=== PATIENT | male | born 1990 | race Caucasian/White ===

== ENCOUNTER 2016-07-23 15:52 | Emergency (ER) | payer MEDICAID ==
--- NOTE | 2016-07-23 16:14 | EDPHY ---
H & P Stated Complaint: Pain L ant lower rib area~several wks;saw PCP dx'd ? spleen enlargement HPI/ROS: HPI CHIEF COMPLAINT: Left-sided lower chest pain HISTORY OF PRESENT ILLNESS: This patient very pleasant 26-year-old male significant past medical history of PTSD, history of tobacco use, presents to the emergency room with left-sided pleuritic chest pain. Pain is sharp and stabbing worse when he takes deep breath in. Radiates to left posterior shoulder blade. he states approximately 2-3 weeks ago he was sick with upper respiratory tract infection he had a sinusitis and upper respiratory infection. Since then he has had a cough nonproductive. No hemoptysis. No fever. Denies shortness of breath but has pain pleuritic inspiratory. No wheezing. Did see his primary care doctor and was told that he may need an ultrasound of the spleen. This time is no abdominal pain fever vomiting. Pain is reproducible with inspiration left-sided radiates shoulder blade. Does not not have a history of DVT or PE. 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 Exam Constitutional appears well nontoxic, triage nursing summary reviewed, vital signs reviewed, awake/alert. Eyes normal conjunctivae and sclera, EOMI, PERRLA. HENT normal inspection, atraumatic, moist mucus membranes, no epistaxis, neck supple/ no meningismus, no raccoon eyes. Respiratory clear to auscultation bilaterally, normal breath sounds, no respiratory distress, no wheezing. Cardiovascular rate normal, regular rhythm, no murmur, no edema, distal pulses normal. Gastrointestinal soft, non-tender, no rebound, no guarding, normal bowel sounds, no distension, no pulsatile mass. Genitourinary no CVA tenderness. Musculoskeletal no midline vertebral tenderness, full range of motion, no calf swelling, no tenderness of extremities, no meningismus, good pulses, neurovascularly intact. Skin pink, warm, & dry, no rash, skin atraumatic. Neurologic awake, alert and oriented x 3, AAOx3, moves all 4 extremities equally, motor intact, sensory intact, CN II-XII intact, normal cerebellar, normal vision, normal speech. Psychiatric normal mood/affect. Heme/Lymph/Immune no lymphadenopathy. Differential Diagnosis: includes but is not limited to in a particular order pleurisy, PE, pneumonia, pleural effusion musculoskeletal chest pain, mono, doubt ACS Medical Decision Making: Plan for this patient IV establishment, blood work, EKG, chest x-ray two view, D-dimer for PE, mono test. Tylenol for pain control. Patient has NSAID allergy. Re-evaluation: EKG interpretation by me on record in [facility] system. Impression time of EKG 16 13, sinus rhythm rate of 78 no acute ischemic changes specifically no ST elevation ST depression T-wave abnormalities. Unremarkable EKG. Ultrasound of the abdomen complete The results of the study are hepatosplenomegaly otherwise unremarkable no free fluid I discussed the results of this study with the radiologist Dr. Menjivar 183: Re-evaluation at this time abdomen soft nontender. Ultrasound blood work x-ray reviewed. Negative D-dimer. Most likely cause of left-sided inspiratory chest pain is pleurisy. Patient is comfortable going home. Recommend Tylenol he has a allergy to NSAIDs. Follow up with his primary care doctor return emergency room if he has worsening symptoms includes worsening abdominal pain, fever, chest pain or shortness of breath. Blood work reviewed, EKG reviewed troponin reviewed negative D-dimer, no signs of ischemia, x-ray and ultrasound reviewed. Source: Patient - Personal History Current Tetanus Diphtheria and Acellular Pertussis (TDAP): Yes - Medical/Surgical History Hx Asthma: Yes Other PMH: ADHD. mood issues (PTSD/depression) - Social History Smoking Status: Former smoker Constitutional: Initial Vital Signs Temperature (C) 36.9 C 07/23/16 15:55 Heart Rate 83 07/23/16 15:55 Respiratory Rate 16 07/23/16 15:55 Blood Pressure 137/82 H 07/23/16 15:55 O2 Sat (%) 100 07/23/16 15:55 O2 Delivery Mode Room Air Allergies/Adverse Reactions: NSAIDS (Non-Steroidal Anti-Inflamma Allergy (Severe, Verified 07/23/16 15:57) Anaphylaxis Penicillins Allergy (Mild, Verified 07/23/16 15:57) Rash Home Medications: Medication Instructions Recorded LORazepam [Ativan (*)] 1 mg PO 07/23/16 Lisdexamfetamine Dimesylate 60 mg PO DAILY 07/23/16 [Vyvanse] Onset Carbonate [Onset 07/23/16 Carbonate Cap 300 mg (*)] Montelukast Sodium [Singulair 10 10 mg PO DAILY@1800 07/23/16 mg (*)] Vortioxetine Hydrobromide 5 mg PO DAILY 07/23/16 [Brintellix] Medical Decision Making - Diagnostics Imaging Results: Imaging Impressions Chest X-Ray 07/23/16 16:21 Impression: Clear lungs. No pneumothorax or acute process. Abdomen Ultrasound 07/23/16 17:33 IMPRESSION: Mild hepatosplenomegaly. Findings were discussed with Kia Neville PA-C, who will convey the information to Gordy Tello MD at 18:28, on 07/23/2016. - Data Points Laboratory Results: Laboratory Results 07/23/16 16:40 07/23/16 16:40 07/23/16 07/23/16 07/23/16 16:40 16:40 16:40 WBC RBC Hgb Hct MCV MCH MCHC RDW Plt Count MPV Neut % (Auto) Lymph % (Auto) [place] % (Auto) Eos % (Auto) Baso % (Auto) Nucleat RBC Rel Count Absolute Neuts (auto) Absolute Lymphs (auto) Absolute Monos (auto) Absolute Eos (auto) Absolute Basos (auto) Absolute Nucleated RBC Immature Gran % Immature Gran # PT 14.2 SEC SEC (12.0-15.0) INR 1.11 (0.83-1.16) APTT 28.5 SEC SEC (23.0-38.0) D-Dimer < 0.27 ug/mLFEU ug/mLFEU (0.00-0.50) Sodium 141 mEq/L mEq/L (134-144) Potassium 3.6 mEq/L mEq/L (3.5-5.2) Chloride 104 mEq/L mEq/L (97-110) Carbon Dioxide 25 mEq/l mEq/l (22-31) Anion Gap 12 mEq/L mEq/L (8-16) BUN 12 mg/dL mg/dL (7-23) Creatinine 0.8 mg/dL mg/dL (0.7-1.3) Estimated GFR > 60 Glucose 75 mg/dL mg/dL (70-100) Calcium 10.0 mg/dL mg/dL (8.5-10.4) Magnesium 2.2 mg/dL mg/dL (1.6-2.3) Total Bilirubin 1.1 mg/dL mg/dL (0.1-1.4) Conjugated Bilirubin 0.4 mg/dL mg/dL (0.0-0.5) Unconjugated Bilirubin 0.7 mg/dL mg/dL (0.0-1.1) AST 22 IU/L IU/L (17-59) ALT 39 IU/L IU/L (21-72) Alkaline Phosphatase 69 IU/L IU/L (38-126) Creatine Kinase 101 IU/L IU/L (0-224) CK-MB (CK-2) Fraction < 0.22 ng/mL ng/mL (0-3.19) Troponin I 0.012 ng/mL ng/mL (0-0.034) Total Protein 7.5 g/dL g/dL (6.3-8.2) Albumin 4.8 g/dL g/dL (3.5-5.0) Lipase 93.0 IU/L IU/L (23-300) Monoscreen NEGATIVE (NEGATIVE) 07/23/16 16:40 WBC 9.59 10^3/uL H 10^3/uL (3.80-9.50) RBC 4.82 10^6/uL 10^6/uL (4.40-6.38) Hgb 15.1 g/dL g/dL (13.7-17.5) Hct 43.4 % % (40.0-51.0) MCV 90.0 fL fL (81.5-99.8) MCH 31.3 pg pg (27.9-34.1) MCHC 34.8 g/dL g/dL (32.4-36.7) RDW 12.3 % % (11.5-15.2) Plt Count 191 10^3/uL 10^3/uL (150-400) MPV 11.1 fL fL (8.7-11.7) Neut % (Auto) 75.7 % H % (39.3-74.2) Lymph % (Auto) 17.2 % % (15.0-45.0) [place] % (Auto) 5.2 % % (4.5-13.0) Eos % (Auto) 1.3 % % (0.6-7.6) Baso % (Auto) 0.4 % % (0.3-1.7) Nucleat RBC Rel Count 0.0 % % (0.0-0.2) Absolute Neuts (auto) 7.26 10^3/uL H 10^3/uL (1.70-6.50) Absolute Lymphs (auto) 1.65 10^3/uL 10^3/uL (1.00-3.00) Absolute Monos (auto) 0.50 10^3/uL 10^3/uL (0.30-0.80) Absolute Eos (auto) 0.12 10^3/uL 10^3/uL (0.03-0.40) Absolute Basos (auto) 0.04 10^3/uL 10^3/uL (0.02-0.10) Absolute Nucleated RBC 0.00 10^3/uL 10^3/uL (0-0.01) Immature Gran % 0.2 % % (0.0-1.1) Immature Gran # 0.02 10^3/uL 10^3/uL (0.00-0.10) PT INR APTT D-Dimer Sodium Potassium Chloride Carbon Dioxide Anion Gap BUN Creatinine Estimated GFR Glucose Calcium Magnesium Total Bilirubin Conjugated Bilirubin Unconjugated Bilirubin AST ALT Alkaline Phosphatase Creatine Kinase CK-MB (CK-2) Fraction Troponin I Total Protein Albumin Lipase Monoscreen Medications Given: Discontinued Medications Acetaminophen (Tylenol) 1,000 mg PO EDNOW ONE Stop: 07/23/16 16:23 Last Admin: 07/23/16 16:45 Dose: 1,000 mg Sodium Chloride (Ns) 1,000 mls @ 0 mls/hr IV ONCE ONE PRN Reason: Wide Open Stop: 07/23/16 16:22 Last Admin: 07/23/16 16:44 Dose: 1,000 mls Departure - Departure Disposition: Home, Routine, Self-Care Clinical Impression: Pleurisy Condition: Good Instructions: Pleurisy (ED) Additional Instructions: 1. return emergency room if you have any worsening symptoms includes worsening chest pain, shortness of breath, abdominal pain fever vomiting. 2. Please follow up with her primary care doctor. Referrals: Celestine Goode MD [Primary Care Provider] - As per Instructions
--- NOTE | 2016-07-23 16:16 | CPEKG ---
Heart Rate: 78 RR Interval: 769 P-R Interval: 144 QRSD Interval: 96 QT Interval: 360 QTC Interval: 411 P [place]: 69 QRS [place]: 70 T Wave [place]: 57 EKG Severity - NORMAL ECG - EKG Impression: SINUS RHYTHM Electronically Signed By: Gordy Tello 23-Jul-2016 22:24:26
[2016-07-23] MEDS ORDERED: NS 1,000 ML IV ONE (16:21)
[2016-07-23] MEDS ORDERED: ACETAMINOPHEN 500 MG TAB PO ONE (16:22)
[2016-07-23 16:44] LABS: % IMMATURE GRANULYOCYTES 0.2 % (0.0-1.1); ABSOLUTE IMMATURE GRANULOCYTES 0.02 10^3/uL (0.00-0.10); ADD DIFF? NO; ADD MORPH? NO; ADD SCAN? NO; ATYPICAL LYMPHOCYTE FLAG 10 (0-99); FRAGMENT RBC FLAG 0 (0-99); HEMATOCRIT 43.4 % (40.0-51.0); HEMOGLOBIN 15.1 g/dL (13.7-17.5); LEFT SHIFT FLG 10 (0-99); LIPEMIA HEMOLYSIS FLAG 90 (0-99); MEAN CELL HEMOGLOBIN 31.3 pg (27.9-34.1); MEAN CELL HEMOGLOBIN CONCENTR. 34.8 g/dL (32.4-36.7); MEAN PLATELET VOLUME 11.1 fL (8.7-11.7); PLATELET CLUMPS FLAG 0 (0-99); PLATELET COUNT 191 10^3/uL (150-400); RED BLOOD CELL COUNT 4.82 10^6/uL (4.40-6.38); RED CELL DISTRIBUTION WIDTH 12.3 % (11.5-15.2)
[2016-07-23 16:55] LABS: INR 1.11 (0.83-1.16); PROTIME(PATIENT) 14.2 SEC (12.0-15.0)
[2016-07-23 16:56] LABS: APTT 28.5 SEC (23.0-38.0)
[2016-07-23 17:02] LABS: ALANINE AMINOTRANSFERASE 39 IU/L (21-72); ALBUMIN 4.8 g/dL (3.5-5.0); ALKALINE PHOSPHATASE 69 IU/L (38-126); ANION GAP 12 mEq/L (8-16); ASPARTATE AMINOTRANSFERASE 22 IU/L (17-59); BILIRUBIN,TOTAL 1.1 mg/dL (0.1-1.4); BILIRUBIN-CONJUGATED 0.4 mg/dL (0.0-0.5); BILIRUBIN-UNCONJUGATED 0.7 mg/dL (0.0-1.1); CARBON DIOXIDE 25 mEq/l (22-31); CHLORIDE 104 mEq/L (97-110); CREATININE 0.8 mg/dL (0.7-1.3); GLOMERULAR FILTRATION RATE > 60; GLUCOSE 75 mg/dL (70-100); MAGNESIUM 2.2 mg/dL (1.6-2.3); POTASSIUM 3.6 mEq/L (3.5-5.2); SODIUM 141 mEq/L (134-144); TOTAL PROTEIN 7.5 g/dL (6.3-8.2)
[2016-07-23 17:12] LABS: TROPONIN I 0.012 ng/mL (0-0.034)
[2016-07-23 17:30] LABS: CREATINE KINASE-MB FRACTION < 0.22 ng/mL (0-3.19)
[2016-07-23 18:51] VITALS: BP 109/68; PULSE 78; RESP 20; TEMP 98.6; O2SAT 99
== END 2016-07-23 18:51 | disposition home or self-care (01) ==
DX: R09.1 Pleurisy (principal); J45.909 Unspecified asthma, uncomplicated; Z87.891 Personal history of nicotine dependence